=== PATIENT | female | born 2000 | race Caucasian/White ===

== ENCOUNTER 2020-04-06 08:36 | Emergency (ER) | payer SELFPAY ==
[2020-04-06 08:43] VITALS: PULSE 95; RESP 16; TEMP 36.8; O2SAT 99; BMI 38.0
--- NOTE | 2020-04-06 08:44 | ED_ITS ---
HPI - Psych General Chief Complaint: Anxiety Stated Complaint: anxiety Time Seen by Provider: 04/06/20 08:43 Source: patient and EMS Mode of arrival: EMS Limitations: no limitations History of Present Illness complaint: anxiety Onset (ago): hour(s) (2) Duration: intermittent History of same: Yes Relieving factors: none Exacerbating factors: none Context: recent alcohol abuse Associated psychiatric symptoms: depression Associated symptoms: shortness of breath (felt she couldn't catch her breath this AM) Treatments prior to arrival: none Related Data Previous Rx's Medication Instructions Recorded hydroxyzine HCl 25 mg PO TID PRN #20 tab 04/06/20 Allergies Allergy/AdvReac Type Severity Reaction Status Date / Time No Known Allergies Allergy Verified 04/06/20 08:43 Review of Systems Review of Systems: Constitutional : No Fever, No Chills ENT/Mouth : No Ear Pain, No Nasal Congestion, No sore throat Eyes: No Eye Pain, No Swelling, No Redness Cardiovascular : No Chest Pain, positive dyspnea Respiratory : No Cough, No Sputum Gastrointestinal : No Nausea, No Vomiting, No Diarrhea Genitourinary : No Dysuria, No Urinary Frequency, No Hematuria Musculoskeletal : No Myalgias Skin : No Skin Lesions, No rash Neuro : No Weakness, No Numbness Psych : positive Anxiety, positive Depression, no SI/HI Heme/Lymph: No Lymphadenopathy Endocrine : No Polyuria, No Polydipsia All other systems reviewed and are negative [facility] Past Medical History Medical History Anxiety Depression Social History Social History Alcohol intake: current Alcohol intake frequency: 3 or more drinks per day Smoking Status: Current every day smoker Smoked in Last 30 Days: Yes Use of substances other than those prescribed or required for medical reasons: No Advance Directives: No Advance Directives Information Provided: No Physical Exam Vital Signs: Vital Signs: Vital Signs Temp Pulse Resp Pulse Ox 04/06/20 08:43 98.2 F 95 16 99 Body Mass Index 38.0 Appearance: Alert. Oriented X3. No acute distress. withdrawn, flat affect Eyes: Pupils equal, round and reactive to light. ENT: Pharynx normal. Neck: Normal inspection. Neck supple. CVS: Normal heart rate and rhythm. Pulses normal. Respiratory: No respiratory distress. Breath sounds normal. Abdomen: Soft and nontender. Skin: Skin warm and dry. Normal skin color. Normal skin turgor. Extremities: No lower extremity edema. No calf ttp Neuro: Oriented X 3. No motor deficit. No sensory deficit. Course Course Course Narrative: negative CXR, cleared by SWAT MDM - Psych MDM Narrative Medical decision making narrative: patient felt anxious and short of breath this AM, PERC negative, no OCPs, no CP doubt PE/ACS, states she is fine now, flat affect poor eye contact - increased ETOH, at this time will obtain CXR, start on atarax and offer SWAT, she denies SI/HI Restraints Face to Face Assessment: Face to Face Assessment: Current Situation: After assessment of the patient, a review of the pertinent medical record and a discussion with nursing staff, I feel the patient requires a restrain intervention. Reaction To: [] Medical Condition: [] Behavioral State: [] Continued Need: [] Discharge Plan Discharge Clinical Impression: Acute anxiety Patient Disposition: Home, Self-Care Instructions: Anxiety (ED) Prescriptions: New hydroxyzine HCl 25 mg tablet 25 mg PO TID PRN (Reason: anxiety) Qty: 20 RF: 0
--- NOTE | 2020-04-06 08:44 | XR_ITS ---
EXAMINATION: XR CHEST CLINICAL INFORMATION: Dyspnea COMPARISON: None TECHNIQUE: Frontal view of the chest was obtained. FINDINGS: No significant abnormality is noted involving the heart, lungs, mediastinum, bony thorax or soft tissues. IMPRESSION: Unremarkable examination.
--- NOTE | 2020-04-06 08:49 | PC.NURSE ---
FLAT AFFECT, PT NOT MAKING EYE CONTACT, SMILING/LAUGHING WHEN DISCUSSING PT ANXIETY AND MENTAL HEALTH HISTORY.
--- NOTE | 2020-04-06 10:13 | MHC.CARE ---
Care team consulted at 0845 to meet with Pt due to concerns of anxiety. Pt arrived to [facility] via EMS after she called 911 with concern that she was having shortness of breath and sxs that she has never had . Care team attempted to meet w pt at 0900 and had to wait until 0915 while registration. Pt was seated legs crossed on her cell phone on the ED stretcher. Pt was wearing a hospital issued mask and willing to engage. Pt displayed obvious signs of anxiety and mood congruent. Pt openly reported that she has suffered from social anxiety since childhood. Pt is new to [place] within the last 8mos' after meeting a friend online and she moved in with her and her friends parents. Pt stated that her friend and her family are supportive. They actually offered to drive pt to the ED this am due to pts expressed concerns but pt stated she felt concerned about feeling her throat was closing and hard to swallow which is a new symptom for her. Pt stated i know this sounds like anxiety but it felt different . Pt stated she did not feel it was in the context of anxiety but that the sxs then caused her to have anxiety. Pt is not working currently, and is not insured as she relies on the support of her family and friends. Pts parents and 5 sibs live in [place] where she grew up. Pt is looking into starting to look for work however she feels her anxiety has been an obstacle. Pt reported that she does not feel depressed and she does not feel acute anxiety as of right now. Pt stated she lives with generalized anxiety at her baseline. Pt denied feeling suicidal or urges to self harm .Pt also denied feeling any aggressive ideation. Pt was given resource list of mental health services locally and how to obtain health insurance as well as the [facility] crisis hotline. Pt was given a prescription for hydroxyzine and was planning to fill this on the way home when her friend picks her up. T/w reviewed signs and sxs to watch for and how/when to seek crisis. Pt was not seeking any further intervention at this time and was in support of the plan that she was medically cleared to leave.
== END 2020-04-06 09:46 | disposition home or self-care (01) ==
PROVIDERS: Emergency Provider Emergency Medicine
DX: F41.9 Anxiety disorder, unspecified (principal); F32.9 Major depressive disorder, single episode, unspecified; F17.200 Nicotine dependence, unspecified, uncomplicated
CPT/HCPCS: 71045; 99284